=== PATIENT | female | born 1990 | race Caucasian/White ===

== ENCOUNTER 2025-06-03 14:54 | Emergency (ER) | payer OTHER, SELFPAY ==
[2025-06-03 15:07] VITALS: BP 135/87; PULSE 73; TEMP 36.6; O2SAT 100; BMI 30.7
--- NOTE | 2025-06-03 15:46 | ED_ITS ---
HPI HPI - General Adult General Chief complaint: Upper Respiratory Infection Stated complaint: RESPIRATORY ISSUES Time Seen by Provider: 06/03/25 15:12 Source: patient Mode of arrival: walk-in Limitations: no limitations History of Present Illness HPI narrative: Patient is a 35-year-old female that presents to the emergency department with complaints of 2 days of headache, chills, sore throat, cough, stuffy nose, and body aches. She denies nausea, vomiting, or diarrhea. She denies any chest pain, shortness breath, or abdominal pain. Related Data Home Medications ?Medication ?Instructions ?Recorded ?Confirmed albuterol sulfate 90 mcg/actuation inhalation 06/03/25 aerosol inhaler gabapentin 600 mg tablet mg 06/03/25 hydroxyzine pamoate 100 mg capsule mg 06/03/25 propranolol 120 mg capsule,24 mg PO 06/03/25 hr,extended release tiotropium bromide 1.25 inhalation 06/03/25 mcg/actuation mist for inhalation (Spiriva Respimat) triamcinolone acetonide 0.1 % topical 06/03/25 topical ointment Allergies Allergy/AdvReac Type Severity Reaction Status Date / Time No Known Drug Allergies Allergy Verified 06/03/25 15:06 Opioid HPI Opioid Management Most Recent Opioid Data: Last Pain Scale 5 Today, 15:07 Review of Systems ROS Status of ROS 10 or more systems reviewed and unremark able except as noted in history and below PFSH PFSH Social History Little interest or pleasure in doing things: not at all Feeling down, depressed, or hopeless: not at all Exam Narrative Exam Narrative: General: No distress, age-appropriate Skin: Warm, dry, no pallor. No rash. Head: Normocephalic, atraumatic. Neck: Supple, non-tender. Eye: Pupils are equal, round and EOMI. No scleral icterus. Ears, Nose, Mouth, and Throat: No nasal mucosal hypertrophy. Oral mucosa is moist, no posterior oropharynx erythema, uvula is mid-line Cardiovascular: Regular Rate and Rhythm without murmur, gallop or rub. Respiratory: No accessory muscle use or respiratory distress. Lungs are clear to auscultation, no wheezing, rales or rhonchi Chest Wall: no tenderness Musculoskeletal: Full ROM of all extremities, no calf or popliteal tenderness Neurological: A&O x4. No cranial nerve dysfunction observed. No truncal ataxia. Moves all extremities. Sensation intact. Psychiatric: Cooperative and interactive. Normal mood and affect. Constitutional Vital Signs, click to edit/add: Last Vital Signs Temp 97.9 F 06/03/25 15:07 Pulse 73 06/03/25 15:07 BP 135/87 06/03/25 15:07 Pulse Ox 100 06/03/25 15:07 O2 Del Method Room Air 06/03/25 15:07 Documenting provider has reviewed patient's vital signs: yes Course Vital Signs Vital signs: Vital Signs Temperature 97.9 F 06/03/25 15:07 Pulse Rate 73 06/03/25 15:07 Blood Pressure 135/87 06/03/25 15:07 Pulse Oximetry 100 06/03/25 15:07 Oxygen Delivery Method Room Air 06/03/25 15:07 Temperature 97.9 F 06/03/25 15:07 Pulse Rate 73 06/03/25 15:07 Blood Pressure 135/87 06/03/25 15:07 Pulse Oximetry 100 06/03/25 15:07 Oxygen Delivery Method Room Air 06/03/25 15:07 Medical Decision Making [facility] Narrative Medical decision making narrative: This is a 35-year-old female presenting with 2 days of headache, chills, sore throat, cough, nasal congestion, and myalgias. She denies chest pain, shortness of breath, gastrointestinal symptoms, or abdominal pain. Vital signs were stable and she appeared non-toxic. Physical exam was reassuring with no signs of respiratory distress or focal neurologic deficits. Given the acute viral syndrome presentation, differential diagnosis included COVID-19, influenza, other viral upper respiratory infection, and less likely bacterial infection or pneumonia. COVID-19 testing returned positive. There was low clinical suspicion for pneumonia, sepsis, meningitis, or other emergent pathology, and no indication for imaging, laboratory studies, or antiviral therapy at this time given mild disease and absence of risk factors. The patient was deemed appropriate for outpatient management with supportive care. She was provided symptomatic treatment recommendations, isolation guidance, unlmpk-kr-gemu instructions, and strict return precautions. The patient understood and agreed with the plan and was discharged home in stable condition. Differential Diagnosis Differential Diagnosis: Influenza A, COVID-19, viral URI Lab Data Lab results reviewed: Yes I reviewed the patient's lab results Labs: Lab Results 12/28/25 Range/Units 15:22 Influenza Type A Ag Negative Influenza Type B Ag Negative SARS-CoV-2 Ag (CV2AG) Positive A (NEGATIVE) Discharge Plan Discharge Chief Complaint: Upper Respiratory Infection Clinical Impression: COVID-19 Patient Disposition: Home, Self-Care Time of Disposition Decision: 15:56 Condition: Good Mode of Transportation: Private Vehicle Prescriptions / Home Meds: No Action hydroxyzine pamoate 100 mg capsule gabapentin 600 mg tablet triamcinolone acetonide 0.1 % ointment TOPICAL propranolol 120 mg capsule,extended release 24 hr PO albuterol sulfate 90 mcg/actuation HFA aerosol inhaler INHALATION Spiriva Respimat 1.25 mcg/actuation mist INHALATION Print Language: French Instructions: COVID-19 (Coronavirus Disease 2019) (ED), COVID-19: Slow the Coronavirus Spread (ED), Face Coverings (Masks) and COVID-19 (ED) Additional Instructions: Diagnosis: COVID-19 (confirmed) What to Expect * Most symptoms improve over 5?10 days. * Fatigue, cough, and congestion may last longer. * Rest and hydration are important for recovery. Home Care * Rest and avoid strenuous activity. * Hydration: Drink plenty of fluids. * Fever/pain control: Use pujj-wvq-vohlezq medications such as acetaminophen or ibuprofen as directed. * Cough/congestion: May use OTC cough suppressants, throat lozenges, saline spray, or decongestants if tolerated. * Nutrition: Eat light, healthy meals as able. Isolation & Infection Control * Stay home and isolate for at least 5 days from symptom onset. * Avoid close contact with others, especially elderly or immunocompromised individuals. * Practice good hand hygiene and cough etiquette. * Wear a well-fitting mask if around others after isolation ends. When to Return to the Emergency Department Seek immediate medical care if you develop: * Shortness of breath or difficulty breathing * Chest pain or pressure * Confusion or difficulty staying awake * Bluish lips or face * Persistent high fever not controlled with medication * Worsening symptoms after initial improvement Follow-Up * Follow up with your primary care provider as needed. * Return sooner if symptoms worsen or new symptoms develop. Wjdwtx-ne-Mghn Guidelines (COVID-19) You may return to work when ALL of the following are met: * At least 5 days have passed since symptom onset * You have been fever-free for 24 hours without fever-reducing medications * Symptoms are improving (mild cough or congestion may persist) After Returning to Work * Wear a mask for days 6?10 when around others. * Avoid close contact with high-risk individuals during this time. * Continue good hand hygiene. If your employer has stricter policies, follow workplace or occupational health guidance.
[2025-06-03 15:50] LABS: SARS-CoV-2 Ag POSITIVE (NEGATIVE)
--- OUTSIDE RECORDS SUMMARY | 2025-06-03 16:02 | XMS_ITS | Clinical Summary ---
Author Organization Jarees tem Address [id number] [address] [place] [address] Care Team Providers Care Distribution Agent Name Role Phone No Pcp, No Pcp Primary Care Provider Unavailabl e Allergies Active AllergyReactionsCriticalityNoted DateCommentsNo Known Drug Allergies 05/05/2016 Medications MedicationSigDispense QuantityRefillsLast FilledStart DateEnd DateStatus albuterol (PROVENTIL HFA;VENTOLIN HFA) 90 mcg/actuation inhaler Indications:COVID-19Inhale 2 puffs every 4 (four) hours as needed for wheezing. 18 g 06/10/2021ctive ibuprofen (MOTRIN) 800 mg tablet Take 1 tablet (800 mg total) by mouth 3 (three) times a day. 21 tablet 03/11/2023ctive acetaminophen (TYLENOL EXTRA STRENGTH) 500 mg tablet Take 1 tablet (500 mg total) by mouth every 6 (six) hours as needed for pain. 30 tablet 03/11/2023ctive Active Problems ProblemNoted DateDiagnosed DateAcute kidney cjppkh1708/02/2019Bipolar disorder 08/02/2019Abscess of abdominal wall08/02/2019Generalized anxiety disorder 08/02/2019Kidney stone08/02/2019Opioid mdtykehezl78/26/2020Severe major depression, single episode, with psychotic /26/2020 Immunizations ImmunizationAdministration DatesNext SmzSSL1809/30/1992,1991,1991, 1991DTaP, Yttywvsqhbf97/05/1996Hep B, Adolescent or Znjzpnjuh98/04/1999, 11/07/1998,10/03/1998HiB09/30/1992,06/17/1992,1991,1991,1991 MMR01/10/1996,06/17/1992Meningococcal VHJ4K2801/19/2008OPV01/10/1996,1991, 1991Tdap06/28/20181460Cmojsvv03/10/2008 Family History Medical HistoryRelationNameCommentsDepressionMotherDepressionSisterRelationName StatusCommentsMotherSister Social History Tobacco UseTypesPacks/DayYears UsedDateSmoking Tobacco: Every DayCigarettes Vaping/E-cigarettesSmokeless Tobacco: Never Tobacco Cessation:Ready to Q uit: Not Asked; Counseling Given: Not Answered Alcohol UseStandard Drinks/TtezCjzuphanLmr54 (1 standard drink = 0.6 oz pure alcohol)ChildcareAnswerDate JglhaoayByxdiithbUryirrt98/12/2019EmploymentAnswer Date TyaemxqfVeqcdynycrKkixzgu52/12/2019Hunger ScreeningAnswerDate Recorded Within the past 12 months we worried whether our food would run out before we got money to buy more.Never True01/20/2025Within the past 12 months the food we bought just didn't last and we didn't have money to get more.Never True 01/20/2025Purpose - LifeAnswerDate RecordedPurpose and direction in lifeUnknown 1CommentsNoSex and Gender InformationValueDate RecordedSex Assigned at BirthNot on fileLegal VfwQgnhgi64/06/2015 11:44 AM EDTGender IdentityNot on fileSexual OrientationNot on file Last Filed Vital Signs Vital SignReadingTime TakenCommentsBlood Bzbttaza559/62001/21/2025 12:39 AM EDT Bkmlj580601/21/2025 12:39 AM DNDJdevraefvib10.4 ??C (97.6 ??F)04/20/2023 4:25 AM ESTRespiratory Nftn162401/21/2025 12:39 AM EDTOxygen Nzppdvcvve60%01/21/2025 12:39 AM EDTInhaled Oxygen Concentration--Ahqzda015.2 kg (223 lb)01/20/2025 10:18 PM WXXSnxbzi571.9 cm (6')01/20/2025 10:18 PM EDTBody Mass Index30.24001/20/2025 10:18 PM EDT Plan of Treatment Health MaintenanceDue DateLast DoneCommentsTobacco Bdzqcerost1991 Depression Fgxskxadb14/09/2003Adult BMI Follow Up Plan2009Pap Smear 02/14/2012Influenza Crnhtxy0402/05/2025dult BMI Ayvkfvotz95 Tobacco Hfumvnfzs35DTaP,Tdap and Td Vaccines (7 - Td or Tdap) , 01/10/1996, 09/30/1992, Additional history exists Medical Devices Not on file Insurance Care Teams Team MemberRelationshipSpecialtyStart DateEnd Date No Pcp, [place] [address] [facility]
--- OUTSIDE RECORDS SUMMARY | 2025-06-03 16:02 | XMS_ITS ---
Author Organization [facility] Care Team Providers Care Software Quality Assurance Engineer Name Role Phone John Hoffmannellygeorgiana Unavailable Unavailable Allergies and adverse reactions No Known Allergies Care Team Name Role Address Phone Organization Dates Terell Hoffman PCP [address], [address], [place] (Office): : [facility] 08/02/2019 - 08/06/2019 Mental Status Section Date Assessment Total Score Description 08/06/2019 CAM 0 No delirium ind icated 08/06/2019 BIMS 15 cognitively int act CAM 0 No delirium ind icated PHQ-9 11 moderate depres idania Insurance Providers Coverage Status Coverage Type Relationship to Subscriber Member Identifier Subscriber Identifier Group Identifier Payer Identifier and Other information 2019 Code: 51 Code System OID:[id number] .[id number]. 5 Code System Name: Source of Payment Typology (PHDSC) Display: Managed Care (Private) Translation: Code: HM Code System: OID:[id number] .[id number]. 1336 Code System Name: Insurance Type Code ([id number]) Display Name: Health Maintenance Organization (HMO) Plan Code: SELF Code System Name: HL7 RoleCode Code System OID:[id number] .[id number] Display Name: Self [id number] Root: [id number] Payer Name: [employer] Address: [address] [place]: [place] State: [place] Country: [facility] Telecom: [phone] Code: 81 Code System OID:[id number] .[id number]. 5 Code System Name: Source of Payment Typology (PHDSC) Display: Self Pay Translation: Code: 09 Code System: OID:[id number] .[id number]. 1336 Code System Name: Insurance Type Code ([id number]) Display Name: Self-pay Code: 2 Code System OID:[id number] .[id number]. 5 Code System Name: Source of Payment Typology (PHDSC) Display: Medicaid Translation: Code: 48 Code System: OID:[id number] .287586.6.255. 1336 Code System Name: Insurance Type Code ([id number]) Display Name: Medicaid Problems Problem # Description Date of onset Resolved Date Code CodeSystem Concern Status 1 ACIDOSIS 08/02/[address] active 2 ACUTE KIDNEY FAILURE, UNSPECIFIED 08/02/[address] active 3 BIPOLAR DISORDER, UNSPECIFIED 08/02/[address] active 4 CALCULUS OF KIDNEY 08/02/[address] active 5 CELLULITIS OF ABDOMINAL WALL 08/02/[address] active 6 CUTANEOUS ABSCESS OF ABDOMINAL WALL 08/02/[address] active 7 ENCOUNTER FOR SURGICAL AFTERCARE FOLLOWING SURGERY ON THE SKIN AND SUBCUTANEOUS TISSUE 08/02/[address] active 8 GENERALIZED ANXIETY DISORDER 08/02/[address] active 9 MAJOR DEPRESSIVE DISORDER, SINGLE EPISODE, SEVERE WITH PSYCHOTIC FEATURES 08/02/[address] active 10 OPIOID DEPENDENCE, UNCOMPLICATED 08/02/[address] active Reason for Referral No Reasons for Referral Entered Social History Social History Observation Description Start Date End Date Code Code System Current Smoking Status Tobacco smoking consumption unknown 182850217 SNOMED CT Sex Assigned At Female 1990 20836-3 [facility] Gender Identity Sexual Orientation Vital Signs Code Code System Vitals Name Values and Units Timing Information 8310-5 [facility] Body Temperature Value=98.2 Units= F 08/06/2019 9279-1 [facility] Respiratory Rate Value=18.0 Units=/m in 08/05/2019 8462-4 [facility] Blood Pressure-Diastolic Value=82 Un its=mmHg 08/05/2019 8480-6 [facility] Blood Pressure-Systolic Zpdza=928 Un its=mmHg 08/05/2019 8867-4 [facility] Heart rate Value=68.0 Units=/min 36092-3 [facility] O2 % BldC Oximetry Value=98.0 Units= % 08/05/2019 10729-7 [facility] Weight Fjlnp=853.8 Units=Lbs 8302-2 [facility] Height Value=71.0 Units=Inches 08/03/2019
== END 2025-06-03 16:09 | disposition home or self-care (01) ==
LOC: ER 15:58
PROVIDERS: Physician Assistant; Emergency Provider Student in an Organized Health Care Education/Training Program
DX: U07.1 COVID-19 (principal)
CPT/HCPCS: 87804; 87811; 99284